=== PATIENT | male | born 1985 | race Caucasian/White ===

== ENCOUNTER 2021-01-01 18:23 | Emergency (ER) | payer BC, OTHER ==
[~2021-01-01] VITALS: Ht 177.8 cm; Wt 69.4 kg
[~2021-01-01 18:23] MED LIST: CYCL10TA2 PO; GABA600T7 PO
--- NOTE | 2021-01-01 22:08 | NUR ---
PT. TO ROOM FROM LOBBY AT THIS TIME
--- NOTE | 2021-01-01 22:20 | NUR ---
PT. TO ED WITH C/O "TEARING" ABD PAIN LOWER RIGHT/CENTAL SINCE FRIDAY. PT. REPORTS PAIN IS WORSE WITH MOVEMENT. DENIES ANY N/V/D. DENIES DYSURIA. STUDENT IN TO EVAL PT. AND DISCUSS POC.
--- NOTE | 2021-01-01 23:08 | NUR ---
ABD US HAS BEEN COMPLETED.
--- NOTE | 2021-01-01 23:22 | NUR ---
CALLED LAB; THEY ARE WORKING ON GETTING ORDERED BLOOD DRAWS.
[2021-01-01 23:42] LABS: BASOPHILS % (AUTO) 0 % (0-1); EOSINOPHILS % (AUTO) 1 % (1-7); LYMPHOCYTES % (AUTO) 27 % (22-44); MEAN CORPUSCULAR HGB CONC 33.7 g/dL (33.2-36.2); MEAN PLATELET VOLUME 7.8 fL (7.4-10.4); MONOCYTES % (AUTO) 6 % (2-9); NEUTROPHILS % (AUTO) 66 % (42-75); PLATELET COUNT 246 x10^3/uL (130-400); RED BLOOD COUNT 4.95 x10^6/uL (4.38-5.82)
[2021-01-01 23:45] LABS: ALBUMIN 3.7 g/dL (3.4-5.0); ANION GAP 4 mmol/L (5-15); CALCIUM 8.8 mg/dL (8.5-10.1); CHLORIDE 106 mmol/L (98-107)
[2021-01-01 23:48] LABS: ALANINE AMINOTRANSFERASE 20 U/L (12-78); ALKALINE PHOSPHATASE 52 U/L (45-117); BILIRUBIN,TOTAL 0.4 mg/dL (0.2-1.0); CREATININE 0.92 mg/dL (0.7-1.3); TOTAL PROTEIN 6.7 g/dL (6.4-8.2)
--- NOTE | 2021-01-02 01:17 | NUR ---
PT. DENIES NEEDS. NO DISTRESS NOTED. US RESULTS PENDING.
--- NOTE | 2021-01-02 02:11 | NUR ---
PT. EXPRESSING FRUSTRATION WITH THIS RN OVER TIME IN ED. "I HAVE BEEN HERE FOR 8 HOURS AND I HAVEN'T EVEN BEEN SEEN BY ANYONE." DISCUSSED WITH PT. BIT TAPPER AND MD HAVE BOTH BEEN IN TO EVAL. PT. STATES "I DON'T UNDERSTAND WHAT COULD BE TAKING SO LONG". CHART IS UP FOR RECHECK BY ERP. PT. STATES "I NEED TO GET HOME I HAVE KIDS." DR. VENTURA AWARE. PT. OFFERED RE-ASSURANCE.
[2021-01-02 02:13] VITALS: BP 112/69
--- NOTE | 2021-01-02 02:24 | NUR ---
REPORT RECIEVED FROM JENNY SHINE. PT RESTING IN [facility]. PT UP FOR RECHECK
== END 2021-01-02 02:54 | disposition home or self-care (01) ==
LOC: ED 18:53
DX: S39.011A Strain of muscle, fascia and tendon of abdomen, initial encounter (principal); R10.30 Lower abdominal pain, unspecified; F17.210 Nicotine dependence, cigarettes, uncomplicated; G43.909 Migraine, unspecified, not intractable, without status migrainosus; M19.90 Unspecified osteoarthritis, unspecified site; X58.XXXA Exposure to other specified factors, initial encounter; Y93.89 Activity, other specified; Y92.89 Other specified places as the place of occurrence of the external cause; Y99.8 Other external cause status
CPT/HCPCS: 36415; 76700; 76857; 80053; 85025; 99406